=== PATIENT | female | born 1960 | race Caucasian/White ===

== ENCOUNTER 2022-02-26 22:21 | Emergency (ER) | payer MEDICARE, OTHER ==
[2022-02-26 22:57] LABS: BILIRUBIN Negative (Negative); BLOOD Negative (Negative); CLARITY Clear (Clear); COLOR Yellow (Yellow); GLUCOSE Negative (Negative); KETONE Trace (Negative); LEUKO ESTERASE 1+ (Negative); NITRITE Negative (Negative); PH 6.5 (4.5-8.0)
[2022-02-26 22:59] LABS: BASO # 0.1 10*3/uL (0.0-0.1); BASO % 1.2 % (0.0-1.0); EOS # 0.3 10*3/uL (0.0-0.4); EOS % 3.5 % (1.0-4.0); HEMATOCRIT 40.8 % (37.0-47.0); LYMPH # 2.4 10*3/uL (1.3-4.4); LYMPH % 31.9 % (27.0-41.0); MEAN CELL VOLUME 98.3 fl (81.0-99.0); MEAN CORPUSCULAR HGB 31.3 pg (27.0-31.0); MEAN CORPUSCULAR HGB CONC 31.9 g/dl (33.0-37.0); MEAN PLATELET VOLUME 11.1 fl (9.6-12.3); MONO # 0.6 10*3/uL (0.1-1.0); NEUT # 4.2 10*3/uL (2.3-7.9); NEUT % 55.3 % (47.0-73.0); PLATELET COUNT AUTOMATED 238 10*3/uL (130-400); RED BLOOD COUNT 4.15 10*6/uL (4.10-5.10); RED CELL DISTRI WIDTH 13.4 % (0-14.5); WHITE BLOOD COUNT 7.6 10*3/uL (4.8-10.8)
[2022-02-26 23:05] LABS: URINE AMPHETAMINES < 1000 (1000ng/ml); URINE BARBITURATES < 200 (200ng/ml); URINE BENZODIAZEPINES < 200 (200ng/ml); URINE CANNABINOIDS (THC) < 50 (50ng/ml); URINE COCAINE < 300 (300ng/ml); URINE METHADONE < 300 (300ng/ml); URINE OPIATES < 300 (300ng/ml); URINE PHENCYCLIDINE < 25 (25ng/ml)
[2022-02-26 23:11] LABS: BACTERIA TRACE
[2022-02-26 23:15] LABS: ALKALINE PHOSPHATASE 56 U/L (45-117); BUN 12 mg/dl (7-24); CHLORIDE 108 mmol/L (98-107); CREATININE 0.53 mg/dL (0.55-1.02); POTASSIUM 4.2 mmol/L (3.5-5.1); SGOT/AST 15 IU/L (3-35); SGPT/ALT 17 U/L (12-78); SODIUM 141 mmol/L (136-145); TOTAL PROTEIN 6.8 gm/dL (6.4-8.2)
[2022-02-26 23:16] LABS: ACETAMINOPHEN (TYLENOL) < 5.0 ug/ml (10-30); ETHYL ALCOHOL < 3.0 mg/dl (<3)
[2022-02-27] MEDS ORDERED: Motrin,Rufen800 MG PO (11:47)
[2022-02-27] MEDS ORDERED: INVEGA SUSTENN156 MG IM (11:48)
[2022-02-27] MEDS ORDERED: Ipratropium Brom3 ML INH (11:49)
[2022-02-27] MEDS ORDERED: LACTULOSE20 GM/30 M PO (11:52)
[2022-02-27] MEDS ORDERED: ATIVAN0.5 MG PO (11:53)
[2022-02-27] MEDS ORDERED: METOPROLOL SUCC50 M1 PO (12:03)
[2022-02-27] MEDS ORDERED: OMEPRAZOLE MAGN20 MG PO (12:06)
[2022-02-27] MEDS ORDERED: NASACORT16.9 ML NAS (12:06)
[2022-02-27] MEDS ORDERED: OXYBUTYNIN ER15 MG PO (12:08)
[2022-02-27] MEDS ORDERED: RIVASTIGMINE T4.5 M1 PO (12:09)
[2022-02-27] MEDS ORDERED: POTASSIUM CHLO10 ME4 PO (12:09)
[2022-02-27] MEDS ORDERED: TYLENOL EXTRA500 M2 PO (12:10)
[2022-02-27] MEDS ORDERED: ASPIR-TRIN325 MG PO (12:11)
[2022-02-27] MEDS ORDERED: BACLOFEN5 MG PO (12:12)
[2022-02-27] MEDS ORDERED: BUSPIRONE HCL10 MG PO (12:12)
[2022-02-27] MEDS ORDERED: CYMBALTA30 MG PO (12:13)
[2022-02-27] MEDS ORDERED: CAPLYTA42 MG PO (12:13)
[2022-02-27] MEDS ORDERED: ELIQUIS5 M1 PO (12:15)
[2022-02-27] MEDS ORDERED: IRON325 M3 PO (12:16)
[2022-02-27] MEDS ORDERED: NEURONTIN100 MG PO (12:17)
[2022-02-27] MEDS ORDERED: BEVESPI AEROS10.7 GM INH (12:18)
[2022-02-27] MEDS ORDERED: ADT ROBITUSSIN237 M1 PO (12:21)
== END 2022-02-27 09:08 ==
LOC: ED 22:21
PROVIDERS: Emergency Medicine
DX: F63.81 Intermittent explosive disorder (principal)

== ENCOUNTER 2022-02-27 05:03 | Inpatient (IN) | payer MEDICARE, OTHER ==
[~2022-02-27] VITALS: Ht 152.4 cm; Wt 59.5 kg
[2022-02-27 09:12] VITALS: BP 149/89
[2022-02-27] MEDS ORDERED: Motrin,Rufen800 MG PO (11:47)
[2022-02-27] MEDS ORDERED: INVEGA SUSTENN156 MG IM (11:48)
[2022-02-27] MEDS ORDERED: Ipratropium Brom3 ML INH (11:49)
[2022-02-27] MEDS ORDERED: LACTULOSE20 GM/30 M PO (11:52)
[2022-02-27] MEDS ORDERED: ATIVAN0.5 MG PO (11:53)
[2022-02-27] MEDS ORDERED: METOPROLOL SUCC50 M1 PO (12:03)
[2022-02-27] MEDS ORDERED: NASACORT16.9 ML NAS (12:06)
[2022-02-27] MEDS ORDERED: OMEPRAZOLE MAGN20 MG PO (12:06)
[2022-02-27] MEDS ORDERED: OXYBUTYNIN ER15 MG PO (12:08)
[2022-02-27] MEDS ORDERED: RIVASTIGMINE T4.5 M1 PO (12:09)
[2022-02-27] MEDS ORDERED: POTASSIUM CHLO10 ME4 PO (12:09)
[2022-02-27] MEDS ORDERED: TYLENOL EXTRA500 M2 PO (12:10)
[2022-02-27] MEDS ORDERED: ASPIR-TRIN325 MG PO (12:11)
[2022-02-27] MEDS ORDERED: BUSPIRONE HCL10 MG PO (12:12)
[2022-02-27] MEDS ORDERED: BACLOFEN5 MG PO (12:12)
[2022-02-27] MEDS ORDERED: CYMBALTA30 MG PO (12:13)
[2022-02-27] MEDS ORDERED: CAPLYTA42 MG PO (12:13)
[2022-02-27] MEDS ORDERED: ELIQUIS5 M1 PO (12:15)
[2022-02-27] MEDS ORDERED: IRON325 M3 PO (12:16)
[2022-02-27] MEDS ORDERED: NEURONTIN100 MG PO (12:17)
[2022-02-27] MEDS ORDERED: BEVESPI AEROS10.7 GM INH (12:18)
[2022-02-27] MEDS ORDERED: ADT ROBITUSSIN237 M1 PO (12:21)
[2022-02-27 20:00] VITALS: BP 129/72
[2022-02-28 06:37] LABS: BASO # 0.1 10*3/uL (0.0-0.1); BASO % 1.3 % (0.0-1.0); EOS # 0.2 10*3/uL (0.0-0.4); EOS % 3.7 % (1.0-4.0); HEMATOCRIT 41.9 % (37.0-47.0); LYMPH # 2.1 10*3/uL (1.3-4.4); LYMPH % 34.1 % (27.0-41.0); MEAN CELL VOLUME 99.5 fl (81.0-99.0); MEAN CORPUSCULAR HGB 31.6 pg (27.0-31.0); MEAN CORPUSCULAR HGB CONC 31.7 g/dl (33.0-37.0); MEAN PLATELET VOLUME 11.2 fl (9.6-12.3); MONO # 0.5 10*3/uL (0.1-1.0); MONO % 7.2 % (3.0-9.0); NEUT # 3.4 10*3/uL (2.3-7.9); NEUT % 53.5 % (47.0-73.0); PLATELET COUNT AUTOMATED 233 10*3/uL (130-400); RED BLOOD COUNT 4.21 10*6/uL (4.10-5.10); RED CELL DISTRI WIDTH 13.4 % (0-14.5); WHITE BLOOD COUNT 6.3 10*3/uL (4.8-10.8)
[2022-02-28 06:55] LABS: ALKALINE PHOSPHATASE 52 U/L (45-117); BUN 7 mg/dl (7-24); CHLORIDE 107 mmol/L (98-107); CHOLESTEROL 131 mg/dL (<200); CREATININE 0.47 mg/dL (0.55-1.02); LDL CHOLESTEROL 68 mg/dL (9-159); POTASSIUM 4.1 mmol/L (3.5-5.1); SGOT/AST 12 IU/L (3-35); SGPT/ALT 16 U/L (12-78); SODIUM 143 mmol/L (136-145); TOTAL PROTEIN 6.5 gm/dL (6.4-8.2); TRIGLYCERIDES 77 mg/dl (<150)
[2022-02-28 07:02] LABS: THYROID STIM HORMONE (HS) 0.263 uIU/ml (0.358-4.75)
[2022-02-28 07:43] VITALS: BP 127/64
[2022-02-28 08:41] LABS: VITAMIN D, 25-HYDROXY 25.4 ng/mL (30-100)
[2022-02-28 16:10] LABS: BILIRUBIN Negative (Negative); BLOOD Negative (Negative); CLARITY Cloudy (Clear); COLOR Yellow (Yellow); GLUCOSE Negative (Negative); KETONE Trace (Negative); LEUKO ESTERASE 1+ (Negative); NITRITE Negative (Negative); PH 5.5 (4.5-8.0)
[2022-02-28 16:19] LABS: BACTERIA 1+; WBC 21-30 wbc/hpf (0-5)
[2022-02-28 20:00] VITALS: BP 121/65
[2022-03-01 07:51] VITALS: BP 115/66
[2022-03-01 20:00] VITALS: BP 122/85
[2022-03-02 08:00] VITALS: BP 114/83
[2022-03-02 20:00] VITALS: BP 107/62
[2022-03-03 08:00] VITALS: BP 107/51; BP 126/59
[2022-03-03 20:00] VITALS: BP 127/61
[2022-03-04 08:00] VITALS: BP 110/58
[2022-03-04 20:00] VITALS: BP 100/60
[2022-03-05 07:04] LABS: BASO # 0.1 10*3/uL (0.0-0.1); BASO % 1.2 % (0.0-1.0); EOS # 0.3 10*3/uL (0.0-0.4); EOS % 3.7 % (1.0-4.0); HEMATOCRIT 38.2 % (37.0-47.0); LYMPH # 1.6 10*3/uL (1.3-4.4); LYMPH % 23.6 % (27.0-41.0); MEAN CELL VOLUME 97.2 fl (81.0-99.0); MEAN CORPUSCULAR HGB 31.8 pg (27.0-31.0); MEAN CORPUSCULAR HGB CONC 32.7 g/dl (33.0-37.0); MEAN PLATELET VOLUME 11.4 fl (9.6-12.3); MONO # 0.6 10*3/uL (0.1-1.0); MONO % 8.7 % (3.0-9.0); NEUT # 4.3 10*3/uL (2.3-7.9); NEUT % 62.5 % (47.0-73.0); PLATELET COUNT AUTOMATED 222 10*3/uL (130-400); RED BLOOD COUNT 3.93 10*6/uL (4.10-5.10); RED CELL DISTRI WIDTH 13.3 % (0-14.5); WHITE BLOOD COUNT 6.8 10*3/uL (4.8-10.8)
[2022-03-05 07:25] LABS: ALKALINE PHOSPHATASE 49 U/L (45-117); BUN 12 mg/dl (7-24); CHLORIDE 108 mmol/L (98-107); CREATININE 0.51 mg/dL (0.55-1.02); SGOT/AST 16 IU/L (3-35); SGPT/ALT 19 U/L (12-78); SODIUM 141 mmol/L (136-145); TOTAL PROTEIN 6.5 gm/dL (6.4-8.2)
[2022-03-05 07:28] VITALS: BP 105/58
[2022-03-05 20:00] VITALS: BP 117/66
[2022-03-06 08:00] VITALS: BP 113/84
[2022-03-06 10:06] LABS: BILIRUBIN Negative (Negative); BLOOD Negative (Negative); CLARITY Clear (Clear); COLOR Yellow (Yellow); GLUCOSE Negative (Negative); KETONE Negative (Negative); LEUKO ESTERASE Negative (Negative); NITRITE Negative (Negative); PH 7.5 (4.5-8.0); SPECIFIC GRAVITY 1.015 (1.001-1.030); UROBILINOGEN 0.2 E.U./dl (0.0-1.0)
[2022-03-06 10:17] LABS: RBC 0-2 rbc/hpf (0-2)
[2022-03-06 20:00] VITALS: BP 98/54
[2022-03-07 07:17] VITALS: BP 97/56
[2022-03-07 20:00] VITALS: BP 118/86; BP 122/72
[2022-03-08 08:00] VITALS: BP 99/51
[2022-03-08 20:00] VITALS: BP 99/46
[2022-03-09 07:10] VITALS: BP 112/72
[2022-03-09 09:24] LABS: ABG BASE EXCESS 1.8 mmol/L (-2.0-2.0); ARTERIAL BLOOD GAS PH 7.398 (7.35-7.45); ARTERIAL BLOOD GAS PO2 59.4 (80-90)
[2022-03-09 12:56] LABS: BILIRUBIN Negative (Negative); BLOOD 2+ (Negative); COLOR Yellow (Yellow); GLUCOSE Negative (Negative); KETONE Trace (Negative); LEUKO ESTERASE 3+ (Negative); NITRITE Positive (Negative)
[2022-03-09 12:57] LABS: CLARITY Turbid (Clear)
[2022-03-09 13:02] LABS: BACTERIA 4+
[2022-03-09 13:03] LABS: TRIP PHOS CRYSTALS 2+; WBC TNTC wbc/hpf (0-5)
[2022-03-09 20:00] VITALS: BP 107/78
[2022-03-10 07:57] VITALS: BP 117/73
[2022-03-10 20:00] VITALS: BP 128/71
[2022-03-11 07:59] VITALS: BP 96/54
[2022-03-11 15:03] VITALS: BP 104/57
[2022-03-12 07:06] VITALS: BP 98/51
[2022-03-12 09:36] VITALS: BP 106/62
[2022-03-12 20:00] VITALS: BP 98/52
[2022-03-13 07:42] VITALS: BP 118/72
[2022-03-13] MEDS ORDERED: LITHIUM CARBON150 MG PO (10:28)
[2022-03-13] MEDS ORDERED: MEMANTINE HCL10 MG PO (10:28)
[2022-03-13] MEDS ORDERED: INVEGA9 MG PO (10:28)
[2022-03-13] MEDS ORDERED: LACTULOSE20 GM/30 M PO (10:28)
[2022-03-13] MEDS ORDERED: RIVASTIGMINE TAR3 M1 PO (10:28)
[2022-03-13] MEDS ORDERED: TRIHEXYPHENIDYL2 M3 PO (10:28)
[2022-03-13] MEDS ORDERED: RAMELTEON8 MG PO (10:28)
[2022-03-13] MEDS ORDERED: VITAMIN D350 MC2 PO (10:37)
[2022-03-13] MEDS ORDERED: CIPROFLOXACIN500 M4 PO (10:37)
== END 2022-03-13 10:57 | DRG 885 ==
LOC: 3N 05:03
PROVIDERS: Counselor Professional; ADMIT Psychiatry & Neurology Psychiatry; ATTEND Psychiatry & Neurology Psychiatry
DX: F25.9 Schizoaffective disorder, unspecified (principal); J96.11 Chronic respiratory failure with hypoxia; Z20.822 Contact with and (suspected) exposure to COVID-19; I48.91 Unspecified atrial fibrillation; J44.9 Chronic obstructive pulmonary disease, unspecified; K21.9 Gastro-esophageal reflux disease without esophagitis; F17.210 Nicotine dependence, cigarettes, uncomplicated; R00.1 Bradycardia, unspecified; R73.9 Hyperglycemia, unspecified; E87.8 Other disorders of electrolyte and fluid balance, not elsewhere classified; Z88.5 Allergy status to narcotic agent; Z79.899 Other long term (current) drug therapy